=== PATIENT | male | born 1985 ===

== ENCOUNTER 2018-02-25 15:50 | Emergency (ER) | payer SELFPAY ==
--- NOTE | 2018-02-25 15:39 | EDPHY ---
H & P Time Seen by Provider: 02/25/18 15:50 Constitutional: Initial Vital Signs Temperature (C) 36.6 C 02/25/18 15:54 Heart Rate 109 H 02/25/18 15:54 Respiratory Rate 16 02/25/18 15:54 Blood Pressure 179/92 H 02/25/18 15:54 O2 Sat (%) 91 L 02/25/18 15:54 O2 Delivery Mode Room Air Allergies/Adverse Reactions: Unable to Assess Allergy (Unverified 02/25/18 15:53) Home Medications: Medication Instructions Recorded Unobtainable 02/25/18 Medical Decision Making ED Course/Re-evaluation: CHIEF COMPLAINT: EtOH intoxication, medical clearance for assisted HISTORY OF PRESENT ILLNESS: The patient is an intoxicated 32 y/o male arriving via EMS in [employer] custody for medical clearance for assisted. He has no complaints, is ambulatory, is not vomiting , has a BGL of 109, has no recent trauma, and denies co-ingestions. He admits to alcohol use today. He met EMS alcohol clearance criteria on scene; however, assisted RN refused to accept him until he was cleared at the ED. He is medically clear for assisted upon arrival here. REVIEW OF SYSTEMS: A 10 point review of systems was performed and is negative with the exception of the elements mentioned in the history of present illness. PHYSICAL EXAM: HR, BP, O2 Sat, RR. Temp noted General Appearance: Alert, well hydrated, appropriate, and non-toxic appearing. Smells of alcohol. Head: Atraumatic without scalp tenderness or obvious injury Eyes: Pupils equal, round, reactive to light and accommodation, EOMI, no trauma , no injection. Ears: Clear bilaterally, no perforation, normal landmarks Nose: Atraumatic, no rhinorrhea, clear. Throat: Mucus membranes moist. Neck: Supple. Respiratory: No retractions, no distress, no wheezes, and no accessory muscle use. Lungs are clear to auscultation bilaterally. Cardiovascular: Regular rate and rhythm, no murmurs, rubs, or gallops. Good capillary refill all extremities. Gastrointestinal: Abdomen is soft, non-tender, non-distended, no masses, no rebound, no guarding, no peritoneal signs. Musculoskeletal: Normal active ROM of all extremities, atraumatic. Neurological: Alert, appropriate, and interactive. Nonfocal. Skin: No rashes, good turgor, no nodules on palpation. PAST MEDICAL HISTORY: Alcohol abuse PAST SURGICAL HISTORY: Denies SOCIAL HISTORY: In [employer] custody. Lives in [place]. DIFFERENTIAL DIAGNOSIS: The differential diagnosis for the patient's presentation included but was not limited to alcohol intoxication, intoxicants. MEDICAL DECISION MAKING: This is a 32 y/o male with a history of alcohol abuse who presents with alcohol intoxication and no complaints. Otherwise normal exam and normal pre-hospital BGL. He meets all criteria for on-scene alcohol clearance per EMS protocol and will be discharged directly to assisted. Spoke with assisted RNJose E, he accepts medical clearance of this patient for assisted. Patient will be discharged in good condition in [employer] custody for transport to the assisted. Departure - Departure Disposition: Law Enforcement/Court/Intermediate Instructions: Abuse of Alcohol (ED) Additional Instructions: Medically clear for assisted. Referrals: [facility] Hours [Outside] - As per Instructions Report Scribed for: Angeol Stevenson Report Scribed by: Earlene Mccarthy Date of Report: 02/25/18 Time of Report: 15:53
[2018-02-25 15:55] VITALS: BP 179/92
== END 2018-02-25 15:56 ==
LOC: EDUNIT#
DX: F10.129 Alcohol abuse with intoxication, unspecified (principal)